=== PATIENT | female | born 2000 ===

== ENCOUNTER 2021-01-16 15:25 | Emergency (ER) | payer SELFPAY ==
[2021-01-16] MEDS ORDERED: metroNIDAZOLE 500 MG TAB PO ONE (15:28)
[2021-01-16] MEDS ORDERED: AZITHROMYCIN 250 MG TAB PO ONE (15:28)
[2021-01-16] MEDS ORDERED: LIDOCAINE-MPF (1%) 10 MG/1 ML VIAL 5 ML INFILTRATI ONE (15:28)
--- NOTE | 2021-01-16 15:29 | Emergency Department Report ---
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-- partner informed her - Related Data Allergies Allergy/AdvReac Type Severity Reaction Status Date / Time No Known Allergies Allergy Unverified 01/16/21 15:33 ED Review of Systems ROS: Stated complaint: STD TREATMENT Other details as noted in HPI Comment: All other systems reviewed and negative ED Past Medical Hx - Past Medical History Previous Medical History?: No - Surgical History Past Surgical History?: No - Family History Family history: no significant - Social History Smoking Status: Never Smoker Substance Use Type: Alcohol ED Physical Exam - General Limitations: No Limitations General appearance: alert, in no apparent distress - Head Head exam: Present: atraumatic, normocephalic - Eye Eye exam: Present: normal appearance - ENT ENT exam: Present: mucous membranes moist - Neck Neck exam: Present: normal inspection - Respiratory Respiratory exam: Present: normal lung sounds bilaterally. Absent: respiratory distress - Cardiovascular Cardiovascular Exam: Present: regular rate, normal rhythm. Absent: systolic murmur, diastolic murmur, rubs, gallop - GI/Abdominal GI/Abdominal exam: Present: soft, normal bowel sounds - Extremities Exam Extremities exam: Present: normal inspection - Back Exam Back exam: Present: normal inspection - Neurological Exam Neurological exam: Present: alert, oriented X3 - Psychiatric Psychiatric exam: Present: normal affect, normal mood - Skin Skin exam: Present: warm, dry, intact, normal color. Absent: rash ED Course Vital Signs 01/16/21 15:35 Temperature 99.6 F Pulse Rate 92 H Respiratory 16 Rate Blood Pressure 119/81 O2 Sat by Pulse 99 Oximetry ED Medical Decision Making - Medical Decision Making LEFT WITHOUT TREATMENT- SHE WILL GO TO CLINIC Vital Signs 01/16/21 15:35 Temperature 99.6 F Pulse Rate 92 H Respiratory 16 Rate Blood Pressure 119/81 O2 Sat by Pulse 99 Oximetry Critical care attestation.: If time is entered above; I have spent that time in minutes in the direct care of this critically ill patient, excluding procedure time. ED Disposition Clinical Impression: Exposure to STD Disposition: Z-07 ELOPED Is pt being admited?: No Does the pt Need Aspirin: No Condition: Stable Additional Instructions: safe sex follow up with obyn referral below Prescriptions: Acyclovir 400 mg PO Q8H #21 tablet Referrals: ANNI CRAWFORD MD [Staff Physician] - 3-5 Days Time of Disposition: 15:37
[2021-01-16 15:37] VITALS: BP 119/81
== END 2021-01-16 15:35 | disposition left against medical advice (07) ==
LOC: ED 15:25
DX: Z20.2 Contact with and (suspected) exposure to infections with a predominantly sexual mode of transmission (principal)
CPT/HCPCS: 99281